=== PATIENT | female | born 1945 | race Caucasian/White ===

== ENCOUNTER → 2022-02-24 13:00 | Outpatient (BNVA) | payer MEDICARE, SELFPAY | PROVIDERS: Visit Provider Family Medicine | DX: E11.9 Type 2 diabetes mellitus without complications (principal); H35.30 Unspecified macular degeneration; E78.5 Hyperlipidemia, unspecified; I10 Essential (primary) hypertension; M81.0 Age-related osteoporosis without current pathological fracture; Z85.43 Personal history of malignant neoplasm of ovary | CPT/HCPCS: 80053; 80061; 83036; 84443; 85025 ==

== ENCOUNTER → 2022-06-04 08:04 | Outpatient (BNVA) | payer MEDICARE, SELFPAY | PROVIDERS: Visit Provider Nurse Practitioner | DX: E11.65 Type 2 diabetes mellitus with hyperglycemia (principal); Z79.4 Long term (current) use of insulin | CPT/HCPCS: 80053; 81000; 82043; 83036 ==

== ENCOUNTER 2022-06-17 06:00 | Outpatient (RCR) | payer MEDICARE, SELFPAY | END 2022-07-13 23:59 | disposition home or self-care (01) | LOC: TPT 06:00 | PROVIDERS: Visit Provider Nurse Practitioner | DX: R26.9 Unspecified abnormalities of gait and mobility (principal) | CPT/HCPCS: 97110; 97116; 97163 ==

== ENCOUNTER → 2022-06-29 14:16 | Outpatient (BNVA) | payer MEDICARE, SELFPAY | PROVIDERS: PCP Nurse Practitioner; Visit Provider Nurse Practitioner Family | DX: R39.15 Urgency of urination (principal) | CPT/HCPCS: 81000 ==

== ENCOUNTER 2022-07-14 06:00 | Outpatient (RCR) | payer MEDICARE, SELFPAY | END 2022-08-13 23:59 | disposition home or self-care (01) | LOC: TPT 06:00 | PROVIDERS: PCP Nurse Practitioner; Visit Provider Nurse Practitioner | DX: R26.9 Unspecified abnormalities of gait and mobility (principal) | CPT/HCPCS: 97110; 97116 ==

== ENCOUNTER → 2022-07-19 13:59 | Outpatient (BNVA) | payer MEDICARE, SELFPAY | PROVIDERS: PCP Nurse Practitioner; Visit Provider Nurse Practitioner | DX: M25.561 Pain in right knee (principal) | CPT/HCPCS: 73562 ==

== ENCOUNTER 2022-08-14 06:00 | Outpatient (RCR) | payer MEDICARE, SELFPAY | END 2022-09-08 23:59 | disposition home or self-care (01) | LOC: TPT 06:00 | PROVIDERS: PCP Nurse Practitioner; Visit Provider Nurse Practitioner | DX: R26.89 Other abnormalities of gait and mobility (principal) | CPT/HCPCS: 97110 ==

== ENCOUNTER → 2022-08-25 09:32 | Outpatient (BNVA) | payer MEDICARE, SELFPAY | PROVIDERS: PCP Nurse Practitioner; Visit Provider Nurse Practitioner | DX: E11.65 Type 2 diabetes mellitus with hyperglycemia (principal); Z79.4 Long term (current) use of insulin; R53.83 Other fatigue; R06.02 Shortness of breath; M81.0 Age-related osteoporosis without current pathological fracture | CPT/HCPCS: 80053; 80061; 83036 ==

== ENCOUNTER → 2022-08-26 11:24 | Outpatient (BNVA) | payer MEDICARE, SELFPAY | PROVIDERS: PCP Nurse Practitioner; Visit Provider Nurse Practitioner Family | DX: E11.65 Type 2 diabetes mellitus with hyperglycemia (principal); R06.02 Shortness of breath; R53.83 Other fatigue; M81.0 Age-related osteoporosis without current pathological fracture; Z79.4 Long term (current) use of insulin | CPT/HCPCS: 82306; 82607; 83540; 85025 ==

== ENCOUNTER 2023-10-05 11:35 | Outpatient (CLI) | payer MEDICARE, SELFPAY ==
--- NOTE | 2023-10-05 12:30 | XRR_ITS ---
PROCEDURE INFORMATION: Exam: XR Lumbosacral Spine Exam date and time: 10/05/2023 12:33 PM Age: 78 years old Clinical indication: Low back pain; Prior surgery; Surgery date: 6+ months; Surgery type: Hernia, left hip replacement; Additional info: M54.50 - low back pain, unspecified TECHNIQUE: Imaging protocol: Radiologic exam of the lumbosacral spine. Views: 2 or 3 views. COMPARISON: CR XR bone length study [id number] 10/05/2023 12:33 PM FINDINGS: Bones/joints: Mild scoliosis convex to the left. 7 mm anterolisthesis of L5 on S1. Mild L1-L2 and L2-L3 degenerative disc disease. Bilateral facet osteoarthritis at the L4-L5 and L5-S1 levels. Multiple surgical clips in the lower abdomen and pelvis bilaterally. A left total hip arthroplasty is partially in the field of view. The visualized arthroplasty is unremarkable. Soft tissues: Unremarkable. XR/XR lumbar spine 2-3V* [id number] IMPRESSION: No acute lumbar spine findings
--- NOTE | 2023-10-05 12:30 | XRR_ITS ---
PROCEDURE INFORMATION: Exam: XR Bone Length Study (Scanogram) Exam date and time: 10/05/2023 12:33 PM Age: 78 years old Clinical indication: Pain: Low back pain, unspecified; Prior surgery; Surgery date: 6+ months; Surgery type: Hernia, left hip replacement; Additional info: M54.50 - low back pain, unspecified TECHNIQUE: Imaging protocol: CT or XR scanogram view of the legs. Study was focused on leg length. COMPARISON: CR XR lumbar spine 2-3V* [id number] 10/05/2023 12:33 PM FINDINGS: Bones/joints: Unremarkable left total hip arthroplasty. Mild-moderate arthritis both knees with mild valgus deformities both knees. Otherwise, unremarkable. Total right leg length: 78.5 cm from the superior margin of the femoral head to the tibial plafond. Right femur length: 45 cm. Right tibia length: 33.5 cm. Total left leg length: 80.5 cm. Left femur length: 46.25 cm. Left tibia length: 34.25 cm. Leg length discrepancy: Left leg measurements are all greater than right. Notes: Femur length is measured from the superior aspect of the femoral head to the distal part of the medial femoral condyle. Tibia length is measured from the distal part of the medial femoral condyle to the center of the tibial plafond. XR/XR bone length study [id number] IMPRESSION: Left leg measurements are all greater than right. See above.
--- NOTE | 2023-10-05 12:30 | XRR_ITS ---
PROCEDURE INFORMATION: Exam: XR Thoracic Spine Exam date and time: 10/05/2023 12:33 PM Age: 78 years old Clinical indication: Pain in thoracic spine; Additional info: M54.50 - low back pain, unspecified TECHNIQUE: Imaging protocol: Radiologic exam of the thoracic spine. Views: 3 views. COMPARISON: CR XR lumbar spine 2-3V* [id number] 10/05/2023 12:33 PM FINDINGS: Bones/joints: Mild S shaped scoliosis. Multilevel spondylosis ranging from mild to severe. Otherwise, unremarkable. Soft tissues: Otherwise, unremarkable soft tissues. Vasculature: Serpiginous calcification in the upper anterior mediastinum is likely within the SVC, left brachiocephalic vein, and medial left subclavian vein. This may be due to old thrombus, but is of uncertain etiology. XR/XR thoracic spine 3V* [id number] IMPRESSION: No acute thoracic spine findings.
== END 2023-10-05 11:36 | disposition home or self-care (01) ==
LOC: RAD 11:37
PROVIDERS: PCP Nurse Practitioner; Visit Provider Nurse Practitioner
DX: M46.94 Unspecified inflammatory spondylopathy, thoracic region (principal); M47.897 Other spondylosis, lumbosacral region; M21.752 Unequal limb length (acquired), left femur; M21.762 Unequal limb length (acquired), left tibia; J98.59 Other diseases of mediastinum, not elsewhere classified; Z96.642 Presence of left artificial hip joint
CPT/HCPCS: 72072; 72100; 77073

== ENCOUNTER 2023-10-17 06:00 | Outpatient (RCR) | payer MEDICARE, SELFPAY | END 2023-11-13 23:59 | disposition home or self-care (01) | LOC: SPT 06:00 | PROVIDERS: Visit Provider Nurse Practitioner | DX: M54.50 Low back pain, unspecified (principal); M79.604 Pain in right leg | CPT/HCPCS: 97110; 97112; 97162; 97530 ==

== ENCOUNTER → 2023-11-03 10:27 | Outpatient (BNVA) | payer MEDICARE, SELFPAY | PROVIDERS: PCP Nurse Practitioner; Visit Provider Nurse Practitioner | DX: E11.9 Type 2 diabetes mellitus without complications (principal); E11.65 Type 2 diabetes mellitus with hyperglycemia; Z79.4 Long term (current) use of insulin; I10 Essential (primary) hypertension; E78.2 Mixed hyperlipidemia; J30.89 Other allergic rhinitis | CPT/HCPCS: 80053; 80061; 81000; 82043; 83036 ==

== ENCOUNTER 2023-11-14 06:00 | Outpatient (RCR) | payer MEDICARE, SELFPAY | END 2023-12-14 23:59 | disposition home or self-care (01) | LOC: SPT 06:00 | PROVIDERS: PCP Nurse Practitioner; Visit Provider Nurse Practitioner | DX: M54.50 Low back pain, unspecified (principal); M79.604 Pain in right leg | CPT/HCPCS: 97110; 97112; 97530 ==

== ENCOUNTER 2023-11-29 14:40 | Outpatient (CLI) | payer MEDICARE, SELFPAY ==
--- NOTE | 2023-11-29 14:40 | MM_ITS ---
WS: [id number] BILATERAL 3D TOMOSYNTHESIS DIGITAL SCREENING MAMMOGRAPHY WITH CAD CLINICAL INFORMATION: Z12.31 - Encounter for screening mammogram for malignant ... HISTORY: Screening mammogram. No current complaints. COMPARISON: None. TECHNIQUE: Bilateral CC and MLO views. FINDINGS: Scattered fibroglandular densities bilaterally. No suspicious focal mass, asymmetry, calcifications, or architectural distortion. No evidence of malignancy. Incidental benign calcifications. Coarse calc ification LEFT breast. MM/[place] [id number] IMPRESSION: BI-RADS: 2-Benign FOLLOW UP: 1 Year Follow-up Recommend return to annual screening mammography.
== END 2023-11-29 14:54 | disposition home or self-care (01) ==
LOC: MOBLMAM 14:59
PROVIDERS: PCP Nurse Practitioner; Visit Provider Nurse Practitioner
DX: Z12.31 Encounter for screening mammogram for malignant neoplasm of breast (principal); R92.323 Mammographic fibroglandular density, bilateral breasts; R92.1 Mammographic calcification found on diagnostic imaging of breast
CPT/HCPCS: 77063; 77067

== ENCOUNTER 2024-01-17 20:00 | Outpatient (CLI) | payer MEDICARE, SELFPAY | END 2024-01-17 20:01 | disposition home or self-care (01) | LOC: SLEEP 23:34 | PROVIDERS: PCP Nurse Practitioner; Visit Provider Nurse Practitioner | DX: G47.10 Hypersomnia, unspecified (principal) | CPT/HCPCS: 95810 ==

== ENCOUNTER → 2024-01-19 11:40 | Outpatient (BNVA) | payer MEDICARE, SELFPAY | PROVIDERS: PCP Nurse Practitioner; Visit Provider Nurse Practitioner | DX: E11.65 Type 2 diabetes mellitus with hyperglycemia (principal) | CPT/HCPCS: 80053; 83036 ==

== ENCOUNTER → 2024-01-21 15:58 | Outpatient (BNVA) | payer MEDICARE, SELFPAY | PROVIDERS: PCP Nurse Practitioner; Visit Provider Emergency Medicine | DX: N89.8 Other specified noninflammatory disorders of vagina (principal); R39.9 Unspecified symptoms and signs involving the genitourinary system | CPT/HCPCS: 81000; 87086 ==

== ENCOUNTER → 2024-04-05 11:26 | Outpatient (BNVA) | payer MEDICARE, SELFPAY | PROVIDERS: PCP Nurse Practitioner; Visit Provider Nurse Practitioner | DX: E11.9 Type 2 diabetes mellitus without complications | CPT/HCPCS: 80053; 80061; 81000; 83036 ==

== ENCOUNTER → 2024-04-23 14:55 | Outpatient (BNVA) | payer MEDICARE, SELFPAY | PROVIDERS: PCP Nurse Practitioner; Visit Provider Clinical Nurse Specialist Adult Health | DX: R35.0 Frequency of micturition (principal) | CPT/HCPCS: 81000; 87086 ==

== ENCOUNTER → 2024-06-18 10:35 | Outpatient (BNVA) | payer MEDICARE, SELFPAY | PROVIDERS: PCP Nurse Practitioner; Visit Provider Nurse Practitioner | DX: E11.65 Type 2 diabetes mellitus with hyperglycemia (principal); Z79.4 Long term (current) use of insulin; E55.9 Vitamin D deficiency, unspecified | CPT/HCPCS: 80053; 80061; 82306; 83036; 84443 ==

== ENCOUNTER → 2024-09-10 11:05 | Outpatient (BNVA) | payer MEDICARE, SELFPAY | PROVIDERS: PCP Nurse Practitioner; Visit Provider Nurse Practitioner | DX: E11.65 Type 2 diabetes mellitus with hyperglycemia (principal); Z79.4 Long term (current) use of insulin | CPT/HCPCS: 80053; 83036 ==

== ENCOUNTER 2024-09-13 05:00 | Outpatient (RCR) | payer MEDICARE, SELFPAY | END 2024-10-13 23:59 | disposition home or self-care (01) | LOC: TPT 05:00 | PROVIDERS: Visit Provider Nurse Practitioner | DX: R26.89 Other abnormalities of gait and mobility (principal) | CPT/HCPCS: 97110; 97116; 97161 ==

== ENCOUNTER 2024-10-14 05:00 | Outpatient (RCR) | payer MEDICARE, SELFPAY | END 2024-11-05 09:34 | disposition home or self-care (01) | LOC: TPT 05:00 | PROVIDERS: Visit Provider Nurse Practitioner | DX: R26.89 Other abnormalities of gait and mobility (principal) | CPT/HCPCS: 97110; 97116 ==

== ENCOUNTER → 2024-10-24 10:50 | Outpatient (BNVA) | payer MEDICARE, SELFPAY | PROVIDERS: Visit Provider Clinical Nurse Specialist Adult Health | DX: R19.7 Diarrhea, unspecified (principal) | CPT/HCPCS: 80053 ==

== ENCOUNTER → 2024-10-25 16:42 | Outpatient (BNVA) | payer MEDICARE, SELFPAY | PROVIDERS: Visit Provider Clinical Nurse Specialist Adult Health | DX: R19.7 Diarrhea, unspecified (principal) | CPT/HCPCS: 82272; 87045; 87427; 87449; 87493 ==

== ENCOUNTER → 2024-10-29 16:42 | Outpatient (BNVA) | payer MEDICARE, SELFPAY | PROVIDERS: Visit Provider Clinical Nurse Specialist Adult Health | DX: R19.7 Diarrhea, unspecified (principal) | CPT/HCPCS: 82274 ==

== ENCOUNTER → 2024-11-29 08:57 | Outpatient (BNVA) | payer MEDICARE, SELFPAY | PROVIDERS: PCP Nurse Practitioner; Visit Provider Nurse Practitioner | DX: E11.65 Type 2 diabetes mellitus with hyperglycemia (principal); Z79.4 Long term (current) use of insulin | CPT/HCPCS: 80053; 83036; 85025 ==

== ENCOUNTER 2025-01-03 11:54 | Outpatient (CLI) | payer MEDICARE, SELFPAY ==
--- NOTE | 2025-01-03 12:00 | MM_ITS ---
WS: [id number] BILATERAL SCREENING DIGITAL TOMOSYNTHESIS MAMMOGRAM WITH CAD HISTORY: SCREENING COMPARISON: 11/29/2023 Bilateral CC and MLO views with tomosynthesis and synthetic mammography submitted. Computer aided detection analyzed. Breast composition: There are scattered areas of fibroglandular density. No suspicious masses, microcalcifications or architectural distortion. Scattered calcifications. There is an asymmetry with small calcifications in the anterior RIGHT breast which are unchanged since the prior study. No increase in size of the asymmetry or increased number of calcifications. MM/MM scr tomosynthesis [id number] IMPRESSION: BI-RADS: 2 - Benign. FOLLOW UP: 1 Year Follow-up
== END 2025-01-03 11:55 | disposition home or self-care (01) ==
LOC: MOBLMAM 11:56
PROVIDERS: PCP Nurse Practitioner; Visit Provider Nurse Practitioner
DX: Z12.31 Encounter for screening mammogram for malignant neoplasm of breast (principal); R92.323 Mammographic fibroglandular density, bilateral breasts; R92.1 Mammographic calcification found on diagnostic imaging of breast
CPT/HCPCS: 77063; 77067

== ENCOUNTER → 2025-02-21 08:43 | Outpatient (BNVA) | payer MEDICARE, SELFPAY | PROVIDERS: PCP Nurse Practitioner; Visit Provider Nurse Practitioner | DX: E11.9 Type 2 diabetes mellitus without complications (principal) | CPT/HCPCS: 80053; 80061; 83036; 85025 ==

== ENCOUNTER 2025-03-12 13:08 | Outpatient (RCR) | payer MEDICARE, SELFPAY | END 2025-03-15 23:59 | disposition home or self-care (01) | LOC: TPT 13:08 | PROVIDERS: Visit Provider Nurse Practitioner | DX: M79.7 Fibromyalgia (principal) | CPT/HCPCS: 97161 ==

== ENCOUNTER 2025-04-10 13:58 | Outpatient (RCR) | payer MEDICARE, SELFPAY | END 2025-04-14 23:59 | disposition home or self-care (01) | LOC: TPT 13:58 | PROVIDERS: Visit Provider Nurse Practitioner | DX: M79.7 Fibromyalgia (principal) | CPT/HCPCS: 97110; 97116 ==

== ENCOUNTER 2025-05-10 13:00 | Outpatient (RCR) | payer MEDICARE, SELFPAY | END 2025-05-13 08:06 | disposition home or self-care (01) | LOC: TPT 13:00 | PROVIDERS: PCP Nurse Practitioner; Visit Provider Nurse Practitioner | DX: M79.7 Fibromyalgia (principal) | CPT/HCPCS: 97110; 97116 ==

== ENCOUNTER → 2025-05-14 08:15 | Outpatient (BNVA) | payer MEDICARE, SELFPAY | PROVIDERS: PCP Nurse Practitioner; Visit Provider Nurse Practitioner | DX: E55.9 Vitamin D deficiency, unspecified (principal); E11.9 Type 2 diabetes mellitus without complications | CPT/HCPCS: 80053; 80061; 82306; 83036; 85025 ==